=== PATIENT | female | born 1960 | race Caucasian/White ===

== ENCOUNTER 2017-03-20 16:15 | Outpatient (CLI) | payer OTHER ==
[2017-03-20 17:25] LABS: #Eosinphils 0.1 thou/uL (0.0-0.7); #Lymphocytes 2.9 thou/uL (1.20-3.40); #Monocytes 0.9 thou/uL (0.11-0.59); #Neutrophils 6.1 thou/uL (1.40-6.50); %Basophils 0.3 % (0.0-1.0); %Eosinophils 1.2 % (0.0-10.0); %Lymphocytes 28.9 % (21.0-51.0); %Monocytes 8.4 % (0.0-10.0); Hematocrit 46.3 % (36.0-47.0); Mean Platelet Volume 7.3 fL (7.4-10.4); Red Blood Cell (RBC) Count 5.03 mill/uL (4.20-5.40)
[2017-03-20 17:49] LABS: Anion Gap 11 mmol/L (10-20); BUN (Urea Nitrogen) 17 mg/dL (9.8-20.1); Calc. Creatinine Clearance 0 mL/min (70-130); Calcium 9.4 mg/dL (7.8-10.44); Carbon Dioxide 29 mmol/L (22-29); Chloride 105 mmol/L (98-107); Estimated GFR-MDRD 73
== END 2017-03-20 16:16 | disposition home or self-care (01) ==
LOC: LABBT 16:15
PROVIDERS: ATTEND Orthopaedic Surgery
DX: Z01.812 Encounter for preprocedural laboratory examination (principal); S83.241D Other tear of medial meniscus, current injury, right knee, subsequent encounter; S83.281D Other tear of lateral meniscus, current injury, right knee, subsequent encounter
CPT/HCPCS: 80048; 85025

== ENCOUNTER 2017-03-29 06:34 | Day surgery (SDC) | payer OTHER ==
[2017-03-20 16:43] VITALS: BMI 63.5
[2017-03-29] MEDS ORDERED: Scopolamine 1.5 mg/72 hour Patch ONE (06:47)
[2017-03-29] MEDS ORDERED: Propofol 500 MG/50 ML VIAL ONE (06:48)
[2017-03-29] MEDS ORDERED: CEFAZOLIN/Water 2 GM/20 ML SYRINGE ONE (06:54)
[2017-03-29] MEDS ORDERED: Fentanyl 100 MCG/2 ML VIAL ONE (08:42)
--- NOTE | 2017-03-29 08:43 | OP ---
PREOPERATIVE DIAGNOSIS: Medial meniscus tear. POSTOPERATIVE DIAGNOSIS: Medial meniscus tear. PROCEDURE: Arthroscopic partial medial and lateral meniscectomy. FINDINGS AT SURGERY: No significant patellofemoral arthritis and lateral compartment arthritis. 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 PROCEDURE IN DETAIL: The patient received Ancef preoperatively. Right leg was prepped and draped in the usual sterile fashion. Scope was placed in the lateral portal and probe was placed in medial po rtal. Findings were as above. I debrided the medial meniscus using basket forceps and smoothed usin g a 4-0 full radius resector. Lateral meniscus was debrided using basket forceps and smoothed using a 4-0 full radius resector. I probed both meniscus and confirmed they were stable. Knee was then dr ained. Sterile dressings applied.
[2017-03-29] MEDS ORDERED: Propofol 200 MG/20 ML VIAL ONE (17:02)
[2017-03-29] MEDS ORDERED: Ondansetron HCl/PF 4 MG/2 ML Vial ONE (17:02)
[2017-03-29] MEDS ORDERED: Ketorolac Tromethamine 30 MG/ML VIAL ONE (17:02)
== END 2017-03-29 10:45 | disposition home or self-care (01) ==
LOC: SDC 06:34
PROVIDERS: ATTEND Orthopaedic Surgery
PROC: 0SBC4ZZ Excision of Right Knee Joint, Percutaneous Endoscopic Approach (ICD-10-PCS; principal; 2017-03-29)
DX: S83.241A Other tear of medial meniscus, current injury, right knee, initial encounter (principal); M94.261 Chondromalacia, right knee; Z90.710 Acquired absence of both cervix and uterus; Z98.890 Other specified postprocedural states
CPT/HCPCS: 96374; G8978-GP-CJ; G8979-GP-CJ; G8980-GP-CJ; J1885; J2405; J2704; J3010

== ENCOUNTER 2018-09-09 07:41 | Outpatient (CLI) | payer OTHER ==
--- NOTE | 2018-09-09 08:19 | MMO ---
Bilateral MAMMO Bilat Screen [facility]. CLINICAL HISTORY: Patient is 57 years old and is seen for screening. The patient has no family history of breast cancer. The patient has no personal history of cancer. VIEWS: The views performed were: bilateral craniocaudal; bilateral craniocaudal with tomosynthesis; bilateral mediolateral oblique; and bilateral mediolateral oblique with tomosynthesis. MAMMOGRAM FINDINGS: The breasts are almost entirely fat. There are no suspicious masses, suspicious calcifications, or new areas of architectural distortion. IMPRESSION: THERE IS NO MAMMOGRAPHIC EVIDENCE OF MALIGNANCY. A ROUTINE FOLLOW-UP MAMMOGRAM IN 1 YEAR IS RECOMMENDED. THE RESULTS OF THIS EXAM WERE SENT TO THE PATIENT. ACR BI-RADS Category 1 - Negative MAMMOGRAPHY NOTE: 1. A negative mammogram report should not delay a biopsy if a dominant of clinically suspicious mass is present. 2. Approximately 10% to 15% of breast cancers are not detected by mammography. 3. Adenosis and dense breasts may obscure an underlying neoplasm.
== END 2018-09-09 07:42 | disposition home or self-care (01) ==
LOC: BICMAMMO 07:41
PROVIDERS: ATTEND Family Medicine
DX: Z12.31 Encounter for screening mammogram for malignant neoplasm of breast (principal)
CPT/HCPCS: 77063; 77067

== ENCOUNTER 2020-12-26 16:27 | Outpatient (CLI) | payer OTHER | END 2020-12-26 16:28 | disposition home or self-care (01) | LOC: BICMAMMO 16:27 | PROVIDERS: ATTEND Family Medicine | DX: Z12.31 Encounter for screening mammogram for malignant neoplasm of breast (principal) | CPT/HCPCS: 77063; 77067 ==

== ENCOUNTER 2022-05-18 07:46 | Outpatient (CLI) | payer BC, OTHER | END 2022-05-18 07:47 | disposition home or self-care (01) | LOC: BICMAMMO 07:46 | PROVIDERS: ATTEND Family Medicine | DX: Z12.31 Encounter for screening mammogram for malignant neoplasm of breast (principal) | CPT/HCPCS: 77063; 77067 ==